=== PATIENT | male | born 1990 | race African-American/Black ===

== ENCOUNTER 2021-03-05 20:35 | Emergency (ER) | payer BC, OTHER ==
[2014-11-20 21:57] VITALS: BP 145/76
[~2021-03-05] VITALS: Ht 190.5 cm; Wt 93.2 kg
[2021-03-05] MEDS ORDERED: DIPH,PERTUSS(ACELL),TET VAC/PF 0.5 ML SYRINGE. VAX IM ONE (22:30)
[2021-03-05] MEDS ORDERED: LIDOCAINE 1% Multi-Dose 20 ML VIAL. INJ ONE (22:30)
--- NOTE | 2021-03-05 22:32 | PHYS DOC ---
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 Edges approximated. Bleeding stopped. Patient states he punched a TV and caused this laceration. Patient denies numbness or tingling, focal weakness. Patient rates his pain a 4 out of 10. (ALEXANDRO PARADA PLODDER OPERATOR) Review of Systems: Review of Systems: Constitutional: Denies fever or chills. [] Eyes: Denies change in visual acuity. [] HENT: Denies nasal congestion or sore throat. [] Respiratory: Denies cough or shortness of breath. [] Cardiovascular: Denies chest pain or edema. [] GI: Denies abdominal pain, nausea, vomiting, bloody stools or diarrhea. [] : Denies dysuria. [] Musculoskeletal: Denies back pain or + right thumb pain joint pain. [] Integument: Denies rash. +Right dorsal thumb laceration [] Neurologic: Denies headache, focal weakness or sensory changes. [] Endocrine: Denies polyuria or polydipsia. [] Lymphatic: Denies swollen glands. [] Psychiatric: Denies depression or anxiety. [] (ALEXANDRO PARADA PLODDER OPERATOR) Heart Score: C/O Chest Pain: No Risk Factors: Risk Factors: DM, Current or recent (<one month) smoker, HTN, HLP, family history of CAD, obesity. Risk Scores: Score 0 - 3: 2.5% MACE over next 6 weeks - Discharge Home Score 4 - 6: 20.3% MACE over next 6 weeks - Admit for Clinical Observation Score 7 - 10: 72.7% MACE over next 6 weeks - Early Invasive Strategies (ALEXANDRO PARADA PLODDER OPERATOR) Current Medications: Current Medications Medications (Trade) Dose Ordered Sig/Nir Start Time Stop Time Status Last Admin Dose Admin Diphtheria/ Tetanus/Acell Pertussis (ADACEL TDap SYRINGE) 0.5 ml ONCE ONCE 7/24/21 22:30 03/05/21 22:31 Lidocaine HCl (Lidocaine 1% 20ml Vial) 20 ml 1X ONCE 03/05/21 22:30 03/05/21 22:31 (ALEXANDRO PARADA APRN) Allergies: Allergies: Allergies Coded Allergies Type Severity Reaction Last Updated Verified No Known Drug Allergies 11/20/14 No (ALEXANDRO PARADA APRN) Physical Exam: PE: Constitutional: Well developed, well nourished, no acute distress, non-toxic appearance. [] HENT: Normocephalic, atraumatic, bilateral external ears normal, oropharynx moist, no oral exudates, nose normal. [] Eyes: PERRLA, EOMI, conjunctiva normal, no discharge. [] Neck: Normal range of motion, no tenderness, supple, no stridor. [] Cardiovascular:Heart rate regular rhythm, no murmur [] Lungs & Thorax: Bilateral breath sounds clear to auscultation [] Abdomen: Bowel sounds normal, soft, no tenderness, no masses, no pulsatile masses. [] Skin: Warm, dry, no erythema, no rash. Dorsal thumb laceration Back: No tenderness, no CVA tenderness. [] Extremities: No tenderness, no cyanosis, no clubbing, ROM intact, no edema. [] Neurologic: Alert and oriented X 3, normal motor function, normal sensory function, no focal deficits noted. [] Psychologic: Affect normal, judgement normal, mood normal. [] (ALEXANDRO PARADA APRN) EKG: EKG: [] (ALEXANDRO PARADA APRN) Radiology/Procedures: Radiology/Procedures: [] (ALEXANDRO PARADA APRN) Course & Med Decision Making: Course & Med Decision Making Pertinent Labs and Imaging studies reviewed. (See chart for details) See HPI. Alert and oriented x4. Ambulatory steady gait. Skin pink warm and dry. Cap refill less than 2 seconds. Radial pulse present. No joint laxity. Full range of motion of all thumb joints. Laceration repair Location: Right dorsal thumb 1 cm laceration Local anesthesia: 1% lidocaine Interrupted sutures/Internal sutures: 4 sutures Nerve/ligament/muscle damage: None Cleaning and irrigation: Chlorhexidine and saline The appropriate timeout was taken. The area was prepped and draped in the usual sterile fashion. The wound was copiously irrigated with normal saline and chlorhexidine. Patient tolerated well without complication. Dressing was applied to the area follow-up education is given to observe for signs and symptoms of infection, bleeding and to follow-up promptly if these occur. Patient can return in 48 hours for a wound recheck. Sutures to be removed in 7 to 10 days. [] (ALEXANDRO PARADA APRN) Dragon Disclaimer: Dragon Disclaimer: This electronic medical record was generated, in whole or in part, using a voice recognition dictation system. (ALEXANDRO PARADA APRN) Departure Departure Impression: Primary Impression: Thumb laceration Qualified Codes: S61.011A - Laceration without foreign body of right thumb without damage to nail, initial encounter Disposition: HOME / SELF CARE / HOMELESS Condition: STABLE Referrals: NO PCP (PCP) Patient Instructions: Laceration Care, Adult, Sutured Wound Care Additional Instructions: Return in 10 days for suture removal. Watch for signs infection. Clean with soap and water. Keep it clean and covered. Attending Signature Attending Signature I have reviewed the PA/SOUND ENGINEER AUDIO CONTROL's note and plan of care. I was available for cons ultation as needed during the patient's visit in the emergency department. I agree with the clinical impression, plan, and disposition. (NOEL LOVE DO) ALEXANDRO PARADA APRN Mar 05, 2021 22:32 NOEL LOVE DO Mar 06, 2021 22:53
--- NOTE | 2021-03-05 23:48 | RAD ---
Exam: Right hand 3 views INDICATION: Laceration to thumb TECHNIQUE: Frontal, lateral and oblique views of the right hand Comparisons: None FINDINGS: Bone mineralization is normal. No acute or healed fractures. Soft tissues are unremarkable. Joint spa evaristo are well-maintained. IMPRESSION: No acute osseous abnormality. No radiopaque foreign body identified. Electronically signed by: Aurelio Way MD (03/05/2021 11:45 PM) PETER
== END 2021-03-05 23:50 | disposition home or self-care (01) ==
LOC: ER 20:35
DX: S61.011A Laceration without foreign body of right thumb without damage to nail, initial encounter (principal); F17.200 Nicotine dependence, unspecified, uncomplicated; W22.8XXA Striking against or struck by other objects, initial encounter; Y93.89 Activity, other specified; Y92.89 Other specified places as the place of occurrence of the external cause; Y99.8 Other external cause status
CPT/HCPCS: 12001; 73130; 90471; 90715; 99283; J3490